=== PATIENT | male | born 1965 | race Caucasian/White ===

== ENCOUNTER 2023-11-28 14:48 | Emergency (ER) | payer OTHER ==
[2023-11-28 16:56] LABS: CORONAVIRUS COVID-19 NAA NEGATIVE (NEGATIVE); INFLUENZA A NAA NEGATIVE (NEGATIVE); INFLUENZA B NAA NEGATIVE (NEGATIVE); RESPIRATORY SYNCYTIAL VIR NAA NEGATIVE (NEGATIVE)
[2023-11-28] MEDS: Azithromycin 250 MG Tab PO ONE (17:29)
== END 2023-11-28 17:34 | disposition home or self-care (01) ==
LOC: MW.ED 14:48
DX: J40 Bronchitis, not specified as acute or chronic (principal); R05.9 Cough, unspecified; I10 Essential (primary) hypertension; E03.9 Hypothyroidism, unspecified; Z79.899 Other long term (current) drug therapy; Z75.8 Other problems related to medical facilities and other health care
CPT/HCPCS: 0241U; 71046; 71046-26; 99283; A9270-GY

== ENCOUNTER 2024-10-02 09:42 | Emergency (ER) | payer OTHER ==
[2024-10-02] MEDS: LORazepam 2 MG/ML SDV IM ONE ×2 (09:43→10:16)
[2024-10-02] MEDS: diphenhydrAMINE 50 MG/ML SDV IM ONE (09:45)
[2024-10-02] MEDS: LORazepam 2 MG/ML SDV IVPUSH ONE ×2 (10:03→10:14)
[2024-10-02 10:10] LABS: BASOPHILS ABSOLUTE AUTO 0.00 K/uL (0.00-0.20); BASOPHILS PERCENT AUTO 0.0 % (0.0-1.0); EOSINOPHILS ABSOLUTE AUTO 0.02 K/uL (0.00-0.45); EOSINOPHILS PERCENT AUTO 0.3 % (0.0-6.0); IMMATURE GRAN ABSOLUTE AUTO 0.02 K/uL (0.00-0.05); IMMATURE GRAN PERCENT AUTO 0.3 % (0.0-0.4); LYMPHOCYTES ABSOLUTE AUTO 1.33 K/uL (1.00-4.80); LYMPHOCYTES PERCENT AUTO 20.2 % (24.0-44.0); MEAN PLATELET VOLUME 9.3 fL (9.4-12.4); MONOCYTES ABSOLUTE AUTO 0.40 K/uL (0.00-0.80); MONOCYTES PERCENT AUTO 6.1 % (0.0-8.0); NEUTROPHILS ABSOLUTE AUTO 4.83 K/uL (1.80-7.70); NEUTROPHILS PERCENT AUTO 73.1 % (41.0-71.0); NRBC ABSOLUTE 0.00 K/uL (0.00-0.02); NRBC PERCENT 0.0 /100WBC (0.0-0.2); PLATELET COUNT,PLT 199 K/uL (150-400); RED BLOOD CELL COUNT 4.10 M/uL (4.52-5.90); WHITE BLOOD CELL COUNT,WBC 6.60 K/uL (3.9-11.3)
[2024-10-02] MEDS: diphenhydrAMINE 50 MG/ML SDV ONE (10:13)
[2024-10-02] MEDS: LORazepam 2 MG/ML SDV ONE ×2 (10:13→18:19)
[2024-10-02 10:23] LABS: ALANINE AMINOTRANSFERASE,ALT 23 IU/L (14-63); ASPARTATE AMNIOTRANSFERASE,AST 26 IU/L (15-37); BLOOD UREA NITROGEN,BUN 11 mg/dL (7.0-18.0); CARBON DIOXIDE,CO2 25.9 mmol/L (21.0-32.0); CHLORIDE,CL 106 mmol/L (98-107); POTASSIUM,K 3.3 mmol/L (3.5-5.1); SODIUM,NA 145 mmol/L (136-148)
[2024-10-02] MEDS: Ziprasidone Mesylate 20 MG in Water For Injection, Sterile 1.2 ML IM ONE (10:34)
[2024-10-02 10:35] LABS: A/G RATIO 1.3 (0.9-1.6); BILIRUBIN TOTAL 0.4 mg/dL (0.2-1.0); CREATINE KINASE,CK 410 U/L (26-308); CREATININE 1.4 mg/dL (0.8-1.3); GLUCOSE RANDOM 124 mg/dL (74-106); PROTEIN TOTAL,TP 7.3 g/dL (6.4-8.2)
[2024-10-02 10:36] LABS: ESTIMATED GFR 58 mL/min (>60)
[2024-10-02] MEDS ORDERED: propofoL 1,000 MG/100 ML 100 ML IV SCH ×3 (11:00→13:45)
[2024-10-02] MEDS: Ketamine 500 mg/10 ML MDV IV ONE (11:10)
[2024-10-02] MEDS: Rocuronium 100 MG/10 ML MDV IVPUSH ONE (11:11)
[2024-10-02] MEDS: propofoL 1,000 MG/100 ML 100 ML IV STA (11:29)
[2024-10-02] MEDS: Iopamidol 755 MG/ML 500 ML Multipack Bottle IVPUSH STA (11:39)
[2024-10-02 12:08] LABS: APPEARANCE,URINE CLEAR; GLUCOSE,URINE NEGATIVE (NEGATIVE); OCCULT BLOOD,URINE NEGATIVE (NEGATIVE)
[2024-10-02 12:16] LABS: AMPHETAMINES SCREEN, URINE NEGATIVE (CUTOFF=500); BUPRENORPHINE SCREEN,URINE NEGATIVE (CUTOFF=10); METHADONE SCREEN, URINE NEGATIVE (CUTOFF=200); METHAMPHETAMINES SCREEN, URINE NEGATIVE (CUTOFF=500); OXYCODONE SCREEN,URINE NEGATIVE (CUT0FF=100); PCP SCREEN,URINE NEGATIVE (CUTOFF=25); THC SCREEN,URINE 20 NG/ML PRESUMPTIVE POSITIVE (CUTOFF=50)
[2024-10-02] MEDS: Ketamine 500 mg/10 ML MDV IM ONE (12:18)
[2024-10-02] MEDS: Midazolam HCl In 0.9 % NaCl/Pf 100 ML IV SCH (13:00)
[2024-10-02] MEDS: Midazolam 5 MG/ML SDV IVPUSH ONE (13:02)
[2024-10-02] MEDS: propofoL 1,000 MG/100 ML 100 ML ONE (13:39)
== END 2024-10-02 13:41 ==
LOC: MW.ED 09:42
DX: R41.82 Altered mental status, unspecified (principal); S09.90XA Unspecified injury of head, initial encounter; E03.9 Hypothyroidism, unspecified; I10 Essential (primary) hypertension; Z79.890 Hormone replacement therapy; Z79.899 Other long term (current) drug therapy; W01.198A Fall on same level from slipping, tripping and stumbling with subsequent striking against other object, initial encounter
CPT/HCPCS: 31500; 36415; 51702; 70450; 70450-26; 70496; 70496-26; 70498; 70498-26; 71045; 71045-26; 72125; 72125-26; 80053; 80305; 80307; 81003; 82140; 82550; 85025; 93005; 93010; 96361; 96365; 96366; 96368; 96372; 96375; 99285; 99285-25; J1200; J1630; J2060; J2250; J2251; J2704; J3486; J3490; J7030; Q9967